=== PATIENT | male | born 1960 | race Caucasian/White ===

== ENCOUNTER 2019-11-16 09:00 | Emergency (ER) | payer BC ==
[2019-11-16 10:00] VITALS: BP 00/00
--- NOTE | 2019-11-16 10:22 | ED ---
Laceration/Wound HPI - HPI Summary HPI Summary: This patient is a 59-year-old otherwise healthy male presenting to the ED with a small laceration to the left forehead. Patient states he had positive loss of consciousness. He states he is unsure what happened, he went downstairs to lift weights, and believes he hit the left side of his head on a piece of gym equipment. He endorses a moderate amount of blood loss, but is unable to quantify it. He endorses slight headache, however no confusion, visual losses, neck pain, memory loss. Denies other symptoms. Refusing CT scan on arrival. - History of Current Complaint Stated Complaint: HEAD LAC Time Seen by Provider: 11/16/19 09:21 Hx Obtained From: Patient Mechanism of Injury: Sharp/Blunt Trauma Onset/Duration: Sudden Onset Aggravating: Movement Alleviating: Compression Timing: Constant Onset Severity: Mild Current Severity: Mild Pain Intensity: 0 Pain Scale Used: 0-10 Numeric Associated Signs & Symptoms: Negative - Allergy/Home Medications Allergies/Adverse Reactions: Allergies Allergy/AdvReac Type Severity Reaction Status Date / Time No Known Allergies Allergy Verified 11/16/19 09:04 Home Medications: Home Medications Aspirin 81 mg CHEW TAB* [Aspirin Low Dose TAB*] 81 mg PO DAILY 11/16/19 [ History Confirmed 11/16/19] Multivit-Min/Folic/Vit K/Lycop [Men's Multivitamin Tablet] 1 each PO DAILY 11/16 [History Confirmed 11/16/19] PMH/Surg Hx/FS Hx/Imm Hx Previously Healthy: Yes Endocrine/Hematology History: Denies: Hx Anticoagulant Therapy, Hx Diabetes Cardiovascular History: Denies: Hx Hypertension History: Denies: Hx Renal Disease Sensory History: Denies: Hx Deafness - Surgical History Surgery Procedure, Year, and Place: achilles tendon - Immunization History Hx Pertussis Vaccination: No Immunizations Up to Date: Yes Infectious Disease History: No Infectious Disease History: Denies: Traveled Outside the [place] in Last 30 Days - Family History Known Family History: Positive: Cardiac Disease Negative: Hypertension, Diabetes - Social History Occupation: Employed Full-time Lives: With Family Alcohol Use: None Hx Substance Use: No Substance Use Type: Reports: None Hx Tobacco Use: No Smoking Status (MU): Never Smoked Tobacco Review of Systems Negative: Fever, Chills, Fatigue, Skin Diaphoresis Negative: Palpitations, Chest Pain Negative: Shortness Of Breath, Cough Genitourinary: Negative Positive: no symptoms reported, see HPI Negative: Arthralgia, Myalgia Positive: Other - laceration to the L forehead All Other Systems Reviewed And Are Negative: Yes Physical Exam Triage Information Reviewed: Yes Vital Signs On Initial Exam: Initial Vitals Temp Pulse Resp BP Pulse Ox 98.0 F 58 19 135/98 99 11/16/19 09:01 11/16/19 09:01 11/16/19 09:01 11/16/19 09:01 11/16/19 09:01 Vital Signs Reviewed: Yes Appearance: Positive: Well-Appearing, Well-Nourished Skin: Positive: Warm, Skin Color Reflects Adequate Perfusion, Other - laceration Head/Face: Positive: Normal Head/Face Inspection Eyes: Positive: EOMI, ROBERTO, Conjunctiva Clear Neck: Positive: Supple Respiratory/Lung Sounds: Positive: Clear to Auscultation, Breath Sounds Present Cardiovascular: Positive: Normal Musculoskeletal: Positive: Strength/ROM Intact Neurological: Positive: Sensory/Motor Intact, Alert, Oriented to Person Place, Time, Speech Normal Psychiatric: Positive: Normal, Affect/Mood Appropriate AVPU Assessment: Alert - J[place] Coma Scale Best Eye Response: 4 - Spontaneous Best Motor Response: 6 - Obeys Commands Best Verbal Response: 5 - Oriented Coma Scale Total: 15 Procedures - Sedation Patient Received Moderate/Deep Sedation with Procedure: No Diagnostics - Vital Signs Vital Signs Temp Pulse Resp BP Pulse Ox 11/16/19 09:59 0 F 0 0 00/00 0 11/16/19 09:01 98.0 F 58 19 135/98 99 - Laboratory Lab Statement: Any lab studies that have been ordered have been reviewed, and results considered in the medical decision making process. Laceration Repair Course/Dx - Course Course Of Treatment: Physical examination, patient appears well, nondiaphoretic in appearing. EOMI/PRL, Lungs CTA, RRR. Patient does not appear to be confused. Per family at bedside, patient has no memory loss, alert and oriented 3. Small 0.7 cm laceration to left forehead which is closed and not bleeding currently. 2 layers of adhesive applied. 2 Steri-Strips applied. Patient refusing CT scan. Discussed with the patient if he develops any worsening symptoms, to return to the ED, however patient is not on blood thinners and denying any symptoms other than a mild headache rated a 2/10. I have encouraged Tylenol and ibuprofen. - Clinical Impression Provider Diagnoses: Laceration Discharge ED - Sign-Out/Discharge Documenting (check all that apply): Patient Departure - Discharge Plan Condition: Stable Disposition: HOME Patient Education Materials: Skin Adhesive Care (ED) Referrals: Ally Cosme MD [Primary Care Provider] - Additional Instructions: Keep the steri strip in place x 2 days Adhesive will slowly come off with water over the next few days - Billing Disposition and Condition Condition: STABLE Disposition: Home
== END 2019-11-16 10:00 | disposition home or self-care (01) ==
LOC: ED 09:00
DX: S01.81XA Laceration without foreign body of other part of head, initial encounter (principal); W22.8XXA Striking against or struck by other objects, initial encounter; Y92.9 Unspecified place or not applicable; Z79.82 Long term (current) use of aspirin
CPT/HCPCS: 99282